=== PATIENT | male | born 1975 | race Caucasian/White ===

== ENCOUNTER 2018-11-17 06:06 | Emergency (ER) | payer BC, SELFPAY ==
[2018-11-17 06:07] VITALS: BP 154/101; PULSE 98; RESP 16; TEMP 36.4; O2SAT 99; BMI 55.2
--- NOTE | 2018-11-17 06:23 | ED.VISSUMM ---
- ER Visit Summary Date of Service: 11/17/18 Chief Complaint: Neck and back pain History of Present Illness: The patient is a 43 M who presents the emergency department with right-sided neck and back pain. Patient states that this prior Monday he had pain left side similar distribution of the trapezius but after a hot shower and some [id number]-[id number] treatment he felt better. He was fine all week until yesterday Monday, when he felt the same thing but on the right side. He tried the usual treatment that he worked earlier in the week and it did not help him. He states that he barely slept all night because of the pain. He notes pain with movement. He cannot find a comfortable position. What eventually brought him to the emergency department was that it hurt his back when he took a breath. PERC negative. Physical Examination: Afebrile vital signs are stable Gen: Well-nourished well-developed morbidly obese Head: Normocephalic atraumatic Eyes: Perrl EOMI ENT: TMs clear no rhinorrhea moist mucous membranes Neck: Supple no lymphadenopathy no JVD patient has exquisite tenderness in the trapezius muscle on the right. There are several palpable trigger points CVS: Regular rate rhythm no murmurs normal S1-S2 Respiratory: No distress clear to auscultation bilaterally chest nontender Abdomen: Soft nontender nondistended normal bowel sounds no masses Back: Nontender Extremity: Nontender no edema Skin: Normal color no rash Neuro: alert orientated ?3 CN II-XII intact normal strength sensation reflexes gait cerebellar Psych: Normal affect normal mood Emergency Department Course and Treatment: I believe this to be trapezius muscle spasm. He has palpable trigger points. I am going to write for Valium and a few [place]. Continued heat and stretching. Impression: 1. Right trapezius muscle spasm This note was generated with [employer] dictation software. It may contain incorrect words, spelling, and punctuation that were not noted in review of the chart prior to signing ED Disposition - Plan for ED Patient: Instructions: ED Spasm Muscle Prescriptions: Hydrocodone Bitart/Apap 5-325 [[place] 5MG-325MG] 1 tab PO Q6H PRN PRN 3 Days #10 tab PRN Reason: Pain Diazepam [Valium] 5 mg PO Q8 PRN #10 tab PRN Reason: Muscle Spasm Referrals: Brendon Stock DO [Primary Care Provider] - 3-5 Days if not improving
--- NOTE | 2018-11-17 06:26 | ED.DCSUM_ITS ---
- ER Visit Summary Date of Service: 11/17/18 Chief Complaint: Neck and back pain History of Present Illness: The patient is a 43 M who presents the emergency department with right-sided neck and back pain. Patient states that this prior Monday he had pain left side similar distribution of the trapezius but after a hot shower and some ubqi-qch-lafqsnm treatment he felt better. He was fine all week until yesterday Monday, when he felt the same thing but on the right side. He tried the usual treatment that he worked earlier in the week and it did not help him. He states that he barely slept all night because of the pain. He notes pain with movement. He cannot find a comfortable position. What ev entually brought him to the emergency department was that it hurt his back when he took a breath. PERC negative. Physical Examination: Afebrile vital signs are stable Gen: Well-nourished well-developed morbidly obese Head: Normocephalic atraumatic Eyes: Perrl EOMI ENT: TMs clear no rhinorrhea moist mucous membranes Neck: Supple no lymphadenopathy no JVD patient has exquisite tenderness in the trapezius muscle on the right. There are several palpable trigger points CVS: Regular rate rhythm no murmurs normal S1-S2 Respiratory: No distress clear to auscultation bilaterally chest nontender Abdomen: Soft nontender nondistended normal bowel sounds no masses Back: Nontender Extremity: Nontender no edema Skin: Normal color no rash Neuro: alert orientated ?3 CN II-XII intact normal strength sensation reflexes gait cerebellar Psych: Normal affect normal mood Emergency Department Course and Treatment: I believe this to be trapezius muscle spasm. He has palpable trigger points. I am going to write for Valium and a few [place]. Continued heat and stretching. Impression: 1. Right trapezius muscle spasm This note was generated with [employer] dictation software. It may contain incorrect words, spelling, and punctuation that were not noted in review of the chart prior to signing ED Disposition - Plan for ED Patient: Instructions: ED Spasm Muscle Prescriptions: Hydrocodone Bitart/Apap 5-325 [[place] 5MG-325MG] 1 tab PO Q6H PRN PRN 3 Days #10 tab PRN Reason: Pain Diazepam [Valium] 5 mg PO Q8 PRN #10 tab PRN Reason: Muscle Spasm Referrals: Brendon Stock DO [Primary Care Provider] - 3-5 Days if not improving
[2018-11-17] MEDS: diazePAM 5 MG Tablet PO (06:33)
[2018-11-17] MEDS: HYDROcodone Bitartrate/Apap 5/325 Tablet PO (06:33)
[2018-11-17 06:36] VITALS: BP 154/101; PULSE 98; RESP 16; O2SAT 98
== END 2018-11-17 06:37 | disposition home or self-care (01) ==
PROVIDERS: Emergency Provider Emergency Medicine; Family Provider Preventive Medicine Occupational Medicine; PCP Preventive Medicine Occupational Medicine
DX: M62.830 Muscle spasm of back (principal); E66.01 Morbid (severe) obesity due to excess calories; K21.9 Gastro-esophageal reflux disease without esophagitis
CPT/HCPCS: 99283

== ENCOUNTER 2019-11-05 04:43 | Inpatient (IN) | payer BC, SELFPAY ==
[2019-11-05] VITALS (23 sets, daily range): BP systolic 111–157; BP diastolic 69–122; PULSE 65–107; RESP 10–18; TEMP 36.3–37.2; O2SAT 96–100; BMI 56.4; BMI 56.0; BMI 56.1
--- NOTE | 2019-11-05 04:50 | ED.RN ---
CALLED FOR EKG PER RN REQUEST, PULLED OLD EKGS FOR
--- NOTE | 2019-11-05 04:55 | EKG12_ITS ---
Test Reason : CP Blood Pressure : / mmHG Vent. Rate : 099 BPM Atrial Rate : 099 BPM P-R Int : 164 ms QRS Dur : 100 ms QT Int : 374 ms P-R-T Axes : 067 002 026 degrees QTc Int : 479 ms Normal sinus rhythm Incomplete right bundle branch block ST & T wave abnormality, consider lateral ischemia Prolonged QT Abnormal ECG Confirmed by GERARD CARNEY, VANITA ([id number]), editor magazine AYALA MELARA ([id number]) on 11/12/2019 1:56:39 PM Referred By: GLORIA Confirmed By:BENJAMIN GEE MD
--- NOTE | 2019-11-05 04:55 | RAD_ITS ---
STUDY: X-RAY CHEST REASON FOR EXAM: Male, 44 years old. Sternal chest pain, shortness of breath and sweating for several days. TECHNIQUE: AP portable chest. COMPARISON: August 12, 2016. FINDINGS: The lungs are clear and expanded. There is no demonstrated pleural abnormality. Normal size heart. Normal mediastinum and rei. Normal visualized pulmonary arteries. Normal visualized aortic arch and descending thoracic aorta. Normal visualized thoracic spine. Normal visualized ribs, clavicles, and shoulders. There is no demonstrated abnormality of the visualized soft tissue structures of the upper abdomen. RAD/Chest 1 View (Portable) IMPRESSION: Normal x-ray examination of the chest. Electronically Signed: Elias Dougherty MD at 5:58 EDT , Service support ,
[2019-11-05 05:01] LABS: Absolute Lymphocyte Count 4.15 X10^3/uL (0.83-4.51); Absolute Neutrophil Count 8.4 X10^3/uL (2.0-7.7); Basophil# 0.05 X10^3/uL; Basophil% 0.3 % (0-1); Eosinophil# 0.68 X10^3/uL; Eosinophils% 4.7 % (0-5); Hematocrit 45.9 % (40-54); Hemoglobin 14.6 g/dL (13.0-16.5); Lymphocyte # 4.15 X10^3/ul (4.0); Mean Corp Hgb Conc 31.8 g/dL (32-36); Mean Corpuscular Hgb 28.7 pg (27.0-32.0); Mean Corpuscular Volume 90.4 fL (80-94); Mean Platelet Vol. 12.1 fl (6.2-12.0); Monocyte# 0.98 X10^3/uL; Monocyte% 6.8 % (0-10); NRBC Flagged by Analyzer 0 % (0-5); Neutrophil # 8.42 X10^3/uL (2.7-7.7); Neutrophil % 58.9 % (47-70); Platelet Count 206 K/mm3 (150-450); RBC Distribution Width CV 13.6 % (11.6-14.6); RBC Distribution Width SD 44.8 fl (35.1-43.9); Red Blood Count 5.08 M/mm3 (4.6-6.2); White Blood Count 14.3 K/mm3 (4.4-11.0)
[2019-11-05] MEDS: Aspirin 81 MG TAB.CHEW 324 MG PO (05:09)
[2019-11-05] MEDS: Mag Hydrox/Al Hydrox/Simeth 30 ML UDC PO (05:09)
[2019-11-05] MEDS: 0.9% Normal Saline 1,000 ML 150 ML IV (05:13)
[2019-11-05 05:19] LABS: Anion Gap 7 (5-15); BUN 13 mg/dL (7-18); BUN/Creat Ratio 14.1 RATIO (10-20); Calcium,Total 8.4 mg/dL (8.5-10.1); Chloride 105 mmol/L (98-107); Creatinine, Serum 0.92 mg/dL (0.70-1.30); EST Glomerular Filtration Rate 95 mL/min (>60); Est Glom Filt Rate - Afr Amer 115 mL/min (>60); Glucose 179 mg/dL (74-106); Potassium 3.7 mmol/L (3.5-5.1); Sodium Level 138 mmol/L (136-145)
--- NOTE | 2019-11-05 06:11 | ED.DCSUM_ITS ---
- ER Visit Summary Date of Service: 11/05/19 Chief Complaint: Chest pain History of Present Illness: The patient is a [address] Foote. He reports approximately an hour ago he was awakened from sleep by burning substernal chest pain. It was 8 or 10 worsening to a 10 currently. It was worsened by nothing. He states he does take omeprazole without relief. He reports pain is made him short of breath and diaphoretic. He denies any nausea or vomiting. Patient had an episode 5 days ago the last approximately 30 minutes and woke him from sleep as well. Patient denies any chest pain or change in dyspnea exertion in the past month. He reports he has been on omeprazole for years. He has been taking that inconsistently over the past year. However, he is taking it daily for the past 5 days. Patient has obesity, tobacco use, and family history as risk factors for coronary artery disease. He denies high blood pressure, diabetes, or high cholesterol. Physical Examination: Vitals: Stable. Afebrile. General: Well-nourished and well-developed. Head: Normocephalic atraumatic. Neck: Supple, no lymphadenopathy. No JVD. Nontender. Cardiovascular: Regular rate and rhythm. No murmurs. Respiratory: No respiratory distress. Clear to auscultation bilaterally. Abdominal: Soft, nontender, nondistended, normal bowel sounds. No guarding, rebound, or peritoneal signs. Back: Nontender. Extremities: Nontender, no edema. Skin: Normal color, no rash. Neurologic: Alert and oriented ?3. Cranial nerves II through XII are intact. Normal strength and sensation. Psych: Normal affect. Test Results: EKG is sinus at 99 with an incomplete right bundle branch block and inferolateral ST depression. QTC is 479. This is a change from August 2016. Troponin is negative. Chem-7 shows a glucose of 179 and calcium of 8.4. CBC shows a white count of 14.3. Clinical Impression(s) from Imaging Studies Chest X-Ray 11/05/19 04:55 IMPRESSION: Normal x-ray examination of the chest. Electronically Signed: Elias Dougherty MD at 5:58 EDT , Service support , Emergency Department Course and Treatment: Patient was treated with aspirin. He was also given a GI cocktail. Treatment Plan: While the patient's pain is very atypical and he improved with a GI cocktail. This does not explain his EKG changes. His heart score is 4. He was discussed with Dr. Hudson and will be admitted for further evaluation and treatment. Disposition: Admitted in improved condition. Impression: 1. Atypical chest pain. 2. Inferolateral ST depression. 3. Heart score 4. This note was generated with [employer] dictation software. It may contain incorrect words, spelling, and punctuation that were not noted in review of the chart prior to signing ED Disposition - Plan for ED Patient: Referrals: Brendon Stock DO [Primary Care Provider] -
--- NOTE | 2019-11-05 06:27 | HP.PCM_ITS ---
Problem List (1) Chest pain Status: Acute (2) Obesity Status: Chronic (3) Smoking Status: Chronic History of Present Illness Date of Admission: 11/05/19 Chief Complaint: CHEST PAIN The patient is a 44 year old patient with a significant past medical history of smoking 1-1/2 packs/day, morbid obesity presents the emergency room today with chest pain. Onset of this chest pain began about 3:00 this morning when the patient awoke and he described it as substernal in nature nonradiating that was 8/10 in strength. He had a similar episode of this kind of pain last also again awakening with it that self resolved. After initial treatment the emergency room the pain is now 0/[address] depressions and inverted T waves on anterior leads V1 that were not present on a previous EKG. Initial troponin is negative and patient will be admitted to progressive care unit for observation and rule out of her [place] artery disease. Since the patient had this chest pain upon awakening both times in the middle of the night and IS obese, there is also concern for sleep apnea. Past Medical History Past Medical History (Chronic Problems): Chronic Problems Obesity (Chronic) Smoking (Chronic) Allergies No Known Allergies Allergy (Verified 11/05/19 04:55) Home Medications: Ambulatory Orders Medication Instructions Recorded Omeprazole 40 mg PO DAILY 08/12/16 Diazepam [Valium] 5 mg PO Q8 PRN #10 tab 11/17/18 Smoking Status: Current every day smoker - *Family History Maternal History Items: No pertinent history Review of Systems Constitutional: Denies: Chills, Fever, Weight Change HEENT: Denies: Head Aches, Sinus Congestion, Sinus Drainage Cardiovascular: Reports: Chest Pain. Denies: Palpitations Respiratory: Denies: Cough, Shortness of breath at rest, Sputum production Gastrointestinal: Denies: Abdominal Pain, Nausea, Vomiting Genitourinary: Denies: Dysuria Musculoskeletal: Denies: Joint Pain, Joint Tenderness Skin: Denies: Rash, Wounds Neurological: Denies: Numbness, Tingling, Focal weakness Psychiatric: Denies: Anxiety, Depression, Homicidal Ideations, Suicidal Ideations Hematologic/ Lymphatic: Denies: Easy Bruising, Easy Bleeding VTE Information - Inpt Only VTE Present on Admission: No VTE Mechan Device Prophylaxis: None VTE Pharm Prophylaxis ordered?: No Patient Problems: Active and Suspected Problems Chest pain (Acute) - Physical Exam Vitals/I&O's: Vital Signs Temp Pulse Resp BP Pulse Ox 98.0 F 94 12 157/96 H 98 11/05/19 06:18 11/05/19 06:18 11/05/19 06:18 11/05/19 06:18 11/05/19 06:18 Oxygen Delivery Method Room Air Weight: 382 lb 4.505 oz Body Mass Index (BMI) 56.4 General: Alert, Oriented x3, Cooperative HEENT: Atraumatic, Normocephalic Neck: Supple Lungs: Clear to auscultation, Normal air movement Cardiovascular: Regular rate, Normal S1, Normal S2, No murmurs Abdomen: Bowel Sounds Present, Soft, Non Tender, Obese Extremities: No edema Skin: No rashes Musculoskeletal: No Tenderness to Palpation of Joints or Extremities Neurological: Neuro grossly intact Psych/Mental Status: Normal Affect, Appropriate Laboratory Results 11/05/19 04:55: WBC 14.3 H, RBC 5.08, Hgb 14.6, Hct 45.9, MCV 90.4, MCH 28.7, MCHC 31.8 L, RDW Std Deviation 44.8 H, RDW Coeff of Rey 13.6, Plt Count 206, MPV 12.1 H, Immature Gran % (Auto) 0.300, Neut % (Auto) 58.9, Lymph % (Auto) 29.0, [place] % (Auto) 6.8, Eos % (Auto) 4.7, Baso % (Auto) 0.3, Absolute Neuts (auto) 8.4 H, Absolute Lymphs (auto) 4.15, Nucleated RBC % 0 11/05/19 04:55: Sodium 138, Potassium 3.7, Chloride 105, Carbon Dioxide 26.0, Anion Gap 7, BUN 13, Creatinine 0.92, Estim Creat Clear Calc 101.40, Est GFR (MDRD) Af Amer 115, Est GFR (MDRD) Non-Af 95, BUN/Creatinine Ratio 14.1, Glucose 179 H, Calcium 8.4 L, Troponin I < 0.015 Current Medications Sodium Chloride () 1,000 mls @ 150 mls/hr IV .Q6H40M [facility] Last Admin: 11/05/19 05:13 Dose: 150 mls/hr Documented by: Assessment/Plan All Active Problems Chest pain (Acute) Chronic Problems Obesity (Chronic) Smoking (Chronic) Plan 1. Chest pain rule out myocardial infarction?admit to progressive care unit for observation, echo cardiac enzymes set up nuclear stress test. Nitroglycerin as needed for chest pain, oxygen as needed and add a baby aspirin daily. 2. Tobacco abuse?cessation strongly encouraged 3. Obesity?encourage weight loss plan 4. DVT prophylaxis?due to age and length of stay will forego any low molecular weight heparin at this point. Strong suspicion for obstructive sleep apnea and would encourage this to be pursued as an outpatient OBSV E&M: [id number] Initial observation care L2
--- NOTE | 2019-11-05 07:40 | EKG12_ITS ---
Test Reason : Blood Pressure : / mmHG Vent. Rate : 086 BPM Atrial Rate : 086 BPM P-R Int : 150 ms QRS Dur : 106 ms QT Int : 382 ms P-R-T Axes : 060 009 025 degrees QTc Int : 457 ms Normal sinus rhythm Normal ECG When compared with ECG of 05-NOV-2019 04:48, MANUAL COMPARISON REQUIRED, DATA IS UNCONFIRMED Confirmed by GERARD CARNEY, VANITA ([id number]), market editor AYALA MELARA ([id number]) on 11/12/2019 2:27:34 PM Referred By: LIZZY Confirmed By:BENJAMIN GEE MD
[2019-11-05 08:05] LABS: Bedside Glucose 112 mg/dL (70-110)
--- NOTE | 2019-11-05 09:58 | CASEMGMT ---
According to the [facility] website, the following are in-network tertiary facilities: [facility] and . [facility]
--- NOTE | 2019-11-05 10:06 | CON.PCM_ITS ---
Problem List (1) NSTEMI (non-ST elevated myocardial infarction) Status: Acute (2) Smoking Status: Chronic (3) Obesity Status: Chronic Reason for Consult Date of Consultation: 11/05/19 History of Present Illness: The patient is a 44 year old white male with a past medical history of tobacco abuse who presents for evaluation of nocturnal chest discomfort/burning sensati on, bilateral upper extremity paresthesias, and then sensation of dyspnea for further evaluation with subsequent findings of an abnormal troponin I level and ECG changes compatible with a non-ST segment elevation MN. The patient states the best of his knowledge she has no cardiovascular history. He does not recall ever undergoing any cardiovascular testing. He notes that he has had 2 episodes recently that subsequently brought him to the hospital of nocturnal centralized chest burning sensation with bilateral upper extremity paresthesias and the sensation of dyspnea. He has had no nausea, emesis, or diaphoresis. There has been no near syncope or syncope. He attributed his symptoms to acid buildup. However he presented to the hospital for evaluation. His initial troponin I level was negative. His initial ECG demonstrated sinus rhythm with an incomplete right bundle branch block with subtle ST segment changes in the lateral distribution potentially compatible with myocardial ischemia. His repeat troponin I level was positive and his repeat ECG demonstrated what appeared to be resolution of the aforementioned ST segment changes. He was subsequently referred for further evaluation with vascular consultation and consideration for diagnostic cardiac catheterization. He has denied any symptoms of orthopnea, PND, or peripheral pitting edema. He admits to his previous history of tobacco use. He also notes a family history in his mother of cardiovascular disease thought to be CAD/MN in her 60s. [] Past Medical History Allergies/Adverse Reactions: Allergies No Known Allergies Allergy (Verified 11/05/19 04:55) Home Medications: Ambulatory Orders Medication Instructions Recorded Omeprazole 40 mg PO DAILY 08/12/16 Diazepam [Valium] 5 mg PO Q8 PRN #10 tab 11/17/18 Past Medical History (Chronic Problems): Chronic Problems Obesity (Chronic) Smoking (Chronic) - *Family History Maternal History Items: No pertinent history Lives: Spouse/ Significant Other Smoking Status: Current every day smoker Tobacco Use: Cigarettes Drugs: None Review of Systems - Review of Systems General: Denies: Fever, Night Sweats, Fatigue Cardiovascular: Reports: Chest Discomfort, Chest Discomfort at Rest, Shortness of Breath, Shortness of Breath at Rest. Denies: Orthopnea, PND, Peripheral Edema, Palpitations, Lightheadedness, Dizziness, Near Syncope, Syncope Respiratory: Denies: Cough, Sputum Production, Hemoptysis Gastrointestinal: Denies: Hematemesis, Hematochezia, Melena Genitourinary: Denies: Dysuria, Hematuria Skin: Denies: Rash Subjectve: This is a 44-year-old obese white male who appears to be resting comfortably at the moment in no acute distress. Objective: Vital Signs Temp Pulse Resp BP Pulse Ox 98.8 F 94 16 147/85 H 98 11/05/19 10:03 11/05/19 10:03 11/05/19 10:03 11/05/19 10:03 11/05/19 10:03 Oxygen Delivery Method Room Air Weight: 379 lb 10.176 oz Body Mass Index (BMI) 56.0 General: Awake, Alert, Oriented x 3, Cooperative, No Acute Distress, Obese HEENT: Atraumatic, Normocephalic, PERRL, EOMI, Sclera Non Icteric Oral: Moist Mucosa Neck: Supple, Good ROM, No JVD Lungs: Clear to auscultation Cardiovascular: Regular Rhythm, Normal S1, Normal S2 Vascular: No Carotid Bruits Abdomen: Bowel Sounds Present, Soft, Non Tender Extremities: No Cyanosis, No Clubbing, No edema Neurological: No Focal Motor or Sensory Deficit Psych/Mental Status: Appropriate 11/05/19 04:55: WBC 14.3 H, RBC 5.08, Hgb 14.6, Hct 45.9, MCV 90.4, MCH 28.7, MCHC 31.8 L, Plt Count 206, MPV 12.1 H, Immature Gran % (Auto) 0.300, Neut % (Auto) 58.9, Lymph % (Auto) 29.0, [place] % (Auto) 6.8, Eos % (Auto) 4.7, Baso % (Auto) 0.3, Absolute Neuts (auto) 8.4 H, Nucleated RBC % 0 11/05/19 04:55: Sodium 138, Potassium 3.7, Chloride 105, Carbon Dioxide 26.0, Anion Gap 7, BUN 13, Creatinine 0.92, Est GFR (MDRD) Af Amer 115, Est GFR (MDRD) Non-Af 95, BUN/Creatinine Ratio 14.1, Glucose 179 H, Calcium 8.4 L, Troponin I < 0.015 11/05/19 08:13: Troponin I 0.895 H* Rhythm: Sinus rhythm EKG: ECG as noted above CXR: Preliminary evaluation: No acute cardiopulmonary disease process. Assessment/Plan 1. Non-ST segment elevation MN At the present time this is a 44-year-old obese tobacco user with no past cardiovascular history who presents for nocturnal symptoms concerning for unstable angina pectoris and subsequent objective findings compatible with a non-ST segment elevation MN. Thus far there is been no other explanation for his symptoms, troponin I changes, or his ECG changes. Thus the concern is related to his underlying cardiovascular disease status and concerns for underlying CAD that requires only medical therapy but possibly revascularization therapy. At the present time he will continue to be observed. He will continue medical management. This will include medication such as aspirin, antiplatelets, nitrates as needed, beta-blockers, possible MICK inhibitor's, lipid-lowering agents, etc. all as deemed appropriate. He has been asked to have further evaluation with a transthoracic echocardiogram to evaluate his left ventricular wall motion systolic function. However he is also been asked to consider further evaluation with diagnostic cardiac catheterization to evaluate his coronary anatomy, etc. The cardiac catheterization procedure and risks were discussed with him. He was agreeable to this approach. 2. Tobacco abuse He has been counseled on the need to discontinue tobacco use. 3. Obesity He has been counseled on the need to adjust diet and exercise as deemed appropriate to hopefully bring his weight under better control to assist with his cardiovascular risk factors. Comment: The patient's case was discussed and reviewed with Dr. Richards. This note was generated using a voice recognition system and there may be incorrect words, spelling or punctuation that were not noted when reviewing the office note prior to saving. Essential Procedure Criteria Procedure Essential: Yes Criteria Note: NSTEMI Risk to Patient if Procedure Delayed: Threat of permanent dysfunction of an extremity or organ system - NSTEMI
[2019-11-05] MEDS: Metoprolol Tartrate 25 MG Tablet PO ×2 (10:25→21:31)
[2019-11-05] MEDS: TICAGRELOR 90 MG TABLET 180 MG PO (10:25)
[2019-11-05] MEDS: 0.9% Normal Saline 1,000 ML 15 ML IV (10:25)
--- NOTE | 2019-11-05 10:30 | NURSING ---
Report called to clinical lab clerk.
[2019-11-05 11:00] LABS: AST(SGOT) 17 U/L (15-37); Alanine Aminotransfer ALT/SGPT 26 U/L (16-61); Albumin, Serum 3.3 g/dL (3.2-5.0); Alkaline Phosphatase 81 U/L (45-117); Cholesterol 125 mg/dL (200); Globulin 4.7 g/dL (2.2-4.2); High Density Lipoprotein 29 mg/dL; Triglycerides 98 mg/dL; Very Low Density Lipoprotein 20 mg/dL (5-40)
[2019-11-05] MEDS: 0.9% Normal Saline 1,000 ML 75 ML IV (12:20)
[2019-11-05 12:26] LABS: D-Dimer Quantitative (DVT/PE) 0.44 FEU/ug/m (0.27-0.49)
--- NOTE | 2019-11-05 12:40 | CL.D_ITS ---
Patient Name: JASON CALDERON Study Date: 11/05/2019 Performing: Gabe Sepulveda MD Ht: 69 inches 175 cm : 1975 Wt: 379.7 lbs 172 kg Age: 44 Gender: male BSA: 2.71 PROCEDURE(S) PERFORMED PG93-PFG/COR/LV CLINICAL PROFILE AND INDICATIONS Indications: ACS <= 24 hrs, New Onset Angina <= 2 months, Suspected CAD Heart Failure: None Stress/Imaging Stress/Image Study Performed: No Angina Classification Anginal Classification w/in 2 Weeks: CCS IV (nocturnal) CAD Presentations: Non-STEMI. CONCLUSIONS Elevated Left Ventricular End Diastolic Pressure Normal LV size, wall motion,and systolic function LVEF: by LV gram 60 % RECOMMENDATIONS Risk factor modification Medical therapy DESCRIPTION OF PROCEDURE The patient arrived to the procedure lab. The risks and benefits of the procedure as well as a full d escription of our services here and current unavailability of surgical backup were fully explained to the patient and/or their significant other prior to the catheterization. The Timeout was completed, verifying the correct patient and procedure. The patient's procedural site was prepped and draped in the usual fashion. Local anesthetic was given subcutaneously to right radial region with Lidocaine 2% . Using a modified Seldinger technique, arterial access was obtained via the right radial artery, a 6 Fr sheath was inserted. Right Coronary Artery selective angiography was then performed in multiple v iews using a 5 Fr. 4.0 [place] catheter. Left Coronary Artery selective angiography was performed in mu ltiple views using a 5 Fr. 4.0 [place] catheter. Left Ventriculography was performed in GORE projection using a 5 Fr. [place] catheter. LV to AO pullback pressures were then recorded.The arterial sheath was pulled and a TR Band was applied for hemostasis CORONARY ANGIOGRAPHY DOMINANCE: Right Dominant LEFT HEART ASSESSMENT Left Ventricular Ejection Fraction: by LV Gram 60 % Normal LV wall motion Elevated Left Ventricular End Diastolic Pressure LVEDP: 23 mmHg LEFT MAIN: Angiographically normal LEFT ANTERIOR DESCENDING ARTERY: Angiographically normal CIRCUMFLEX ARTERY: MID CIRC: Mild luminal irregularities RIGHT CORONARY ARTERY: MID RCA: Mild luminal irregularities AORTIC ROOT: Angiographically normal COMPLICATIONS No Complications PROCEDURE MEDICATIONS Versed 1 mg IV Fentanyl 50 mcg IV Oxygen: 2 L/min via nasal cannula Heparin given IA 11/05/2019 11:14:04 Verapamil 2.5mg, Ntg 100mcgs, 2000 units of Heparin given IA 11/05/2019 11:14:04 SUMMARY OF HEMODYNAMIC DATA Time AIR REST ECG 10:54:52 AO 125/98 (112) SA 11:15:32 LV 153/-4, 28 11:24:55 LV 156/-5, 23 11:25:02 LV 157/2, 35 11:25:49 LV 156/1, 34 11:25:56 LVp 156/0, 29 11:26:06 AOp 139/93 (114) 11:26:11 Signed By Gabe Sepulveda MD On 11/05/2019 12:40:14 Gabe Sepulveda MD
[2019-11-05] MEDS: Lisinopril 10 MG Tablet PO ×2 (13:35→21:31)
--- NOTE | 2019-11-05 14:02 | ECHOD_ITS ---
Reason For Study: S/P [place] Procedure This was a 2D Doppler, Color Flow transthoracic echocardiogram. The study was technically difficult. Exam performed portable in patient room. Left Ventricle Left ventricular systolic function is normal. The estimated ejection fraction is 65 %. No evidence for diastolic dysfunction. No regional wall motion abnormalities noted. Right Ventricle Normal RV size. Normal systolic function. Atria Normal left atrium. Normal right atrium. No doppler evidence for ASD. Mitral Valve There is no mitral annular calcification. Normal mitral valve. Trivial mitral valve insufficiency. Tricuspid Valve Normal tricuspid valve. Trivial tricuspid valve insufficiency. Unable to estimate RV systolic pressure/pulmonary artery pressure due to technically difficult study. Aortic Valve Trisinus/trileaflet aortic valve. Normal aortic valve. Pulmonic Valve The pulmonic valve is not well visualized. Great Vessels Normal sized aortic root. Pericardium/Pleural No pericardial effusion. MMode/2D Measurements & Calculations LVIDd: 5.7 cm IVSd: 1.2 cm Ao root diam: 3.3 cm LVIDs: 3.9 cm LVPWd: 1.2 cm RVDd: 3.4 cm FS: 32.3 % LAV(MOD-bp): 54.7 ml LA A4 area: 18.9 cm2 LA dimension(2D): 3.2 cm LAV(MOD-bp) Indexed: 20.2 ml/m2 LAV(MOD-sp2): 55.5 ml LAV(MOD-sp4): 55.1 ml RA A4 area: 12.9 cm2 Time Measurements MV dec time: 0.21 sec Doppler Measurements & Calculations MV E max lambert: 88.6 cm/sec Lat Peak E' Lambert: 10.0 cm/sec Med Peak E' Lambert: 7.0 cm/sec MV A max lambert: 81.2 cm/sec E/E' lat: 8.9 E/E' med: 12.6 MV E/A: 1.1 Ao V2 max: 142.2 cm/sec LV V1 max: 114.9 cm/sec PA V2 max: 97.4 cm/sec Ao max P.1 mmHg LV V1 max P.3 mmHg Ao V2 mean: 104.8 cm/sec LV V1 mean P.4 mmHg Ao mean P.8 mmHg LV V1 mean: 88.9 cm/sec Ao V2 VTI: 24.9 cm LV V1 VTI: 23.4 cm Interpretation Summary The study was technically difficult. Left ventricular systolic function is normal. The estimated ejection fraction is 65 %. Trivial mitral valve insufficiency. Trivial tricuspid valve insufficiency. Unable to estimate RV systolic pressure/pulmonary artery pressure due to technically difficult study. No evidence for diastolic dysfunction. Ordering Physician: Gabe Sepulveda Referring Physician: Brendon Stock Performed By: Yolanda Rosales RDCS, RVT
--- NOTE | 2019-11-05 16:45 | CCHN_ITS ---
Hospitalist Note Patient was seen and examined briefly today, his cardiac enzymes elevated today and he was seen by cardiology in consultation, cardiac catheterization was performed today which showed no evidence of obstructive coronary disease, there was mild diffuse coronary artery disease noted however. Patient's medications were adjusted by cardiology. Patient also had a CTA of his chest performed today which did not show evidence of a PE. Patient remained stable at this time, he will be reevaluated tomorrow by cardiology for possible discharge to [place].
[2019-11-05] MEDS: Atorvastatin Calcium 20 MG Tablet PO (21:31)
[2019-11-06] MEDS: 0.9% Normal Saline 1,000 ML 75 ML IV (00:50)
[2019-11-06 02:59] VITALS: PULSE 62
[2019-11-06 03:20] VITALS: BP 125/82; PULSE 76; RESP 18; TEMP 36.6; O2SAT 97
[2019-11-06 06:00] LABS: Hematocrit 43.8 % (40-54); Hemoglobin 14.2 g/dL (13.0-16.5); Mean Corp Hgb Conc 32.4 g/dL (32-36); Mean Corpuscular Hgb 28.9 pg (27.0-32.0); Mean Platelet Vol. 12.1 fl (6.2-12.0); Platelet Count 204 K/mm3 (150-450); RBC Distribution Width CV 13.8 % (11.6-14.6); RBC Distribution Width SD 44.7 fl (35.1-43.9); Red Blood Count 4.92 M/mm3 (4.6-6.2); White Blood Count 12.7 K/mm3 (4.4-11.0)
[2019-11-06 06:38] LABS: ALB/GLOB Ratio 0.7 RATIO (0.9-2.4); AST(SGOT) 19 U/L (15-37); Alanine Aminotransfer ALT/SGPT 25 U/L (16-61); Albumin, Serum 3.1 g/dL (3.2-5.0); Alkaline Phosphatase 75 U/L (45-117); Anion Gap 6 (5-15); BUN 11 mg/dL (7-18); Calcium,Total 8.5 mg/dL (8.5-10.1); Chloride 108 mmol/L (98-107); Creatinine, Serum 0.78 mg/dL (0.70-1.30); EST Glomerular Filtration Rate 114 mL/min (>60); Est Glom Filt Rate - Afr Amer 138 mL/min (>60); Globulin 4.3 g/dL (2.2-4.2); Glucose 136 mg/dL (74-106); Protein, Total 7.4 g/dL (6.4-8.2); Sodium Level 139 mmol/L (136-145)
[2019-11-06 07:00] VITALS: PULSE 66
[2019-11-06 07:30] VITALS: O2SAT 92
[2019-11-06 09:20] VITALS: BP 150/73; PULSE 73; RESP 16; TEMP 36.4; O2SAT 100
[2019-11-06] MEDS: Pantoprazole Sodium 40 MG Tablet PO (09:20)
[2019-11-06] MEDS: Lisinopril 10 MG Tablet PO (09:20)
[2019-11-06] MEDS: Aspirin 81 MG TAB.CHEW PO (09:20)
[2019-11-06] MEDS: Metoprolol Tartrate 25 MG Tablet PO (09:20)
[2019-11-06] MEDS: Clopidogrel Bisulfate 75 MG Tablet PO (09:20)
--- NOTE | 2019-11-06 10:10 | CASEMGMT ---
RN LACI Face to Face with patient for initial transition planning/care coordination assessment. RN CM introduced self and role at [facility]. Patient sitting in chair, alert and oriented. Patient willing to participate in assessment and is able to answer all questions appropriately. Care providers, pharmacy, and demographics verified. Patient wishes to discharge home, denies need for home health at this time. Patient states he has no further needs or concerns at this time. CM to follow for discharge planning needs that may arise. PCP: Brendon Stock Specialists: None Preferred Pharmacy: [facility] Insurance: [employer] Prescription Benefit: yes Living Will/HPOA: none LNOK: Living Arrangements: Patient lives with in mobile home with 6-7 steps to enter the home. Patient states he is independent at home and able to ambulate stairs. Patient states he smoke 3/4 pack of cigarettes per day since age 15yo. Has occasional alcohol. Transportation: self or DME/HHC: Patient denies any DME or previous HHC. Disposition Plan: Patient to discharge home with family support and follow-up plans in place. Silvia CAMEJO, RN, CM
--- NOTE | 2019-11-06 10:12 | DCINST_ITS ---
- Discharge Diagnoses Current Active Problems: Current Active and Chronic Problems Chest pain (Acute) Obesity (Chronic) Smoking (Chronic) NSTEMI (non-ST elevated myocardial infarction) (Acute) You will use the following diet at home:: Calorie/Carbohydrate Controlled (specify 1200, 1400, etc), Cardiac Discharge Activity: Return to Normal Activity Call your doctor if you observe: Shortness of breath, Dizziness, Fainting spells, Chest pain Allergies/Adverse Reactions: Allergies No Known Allergies Allergy (Verified 11/05/19 04:55) Medications to take at Discharge Omeprazole 40 mg PO DAILY 08/12/16 Diazepam [Valium] 5 mg PO Q8 PRN #10 tab 11/17/18 Aspirin [Aspirin, Baby] 81 mg PO DAILY@0800 #30 tab.chew 11/06/19 Atorvastatin Calcium [Lipitor] 20 mg PO QHS #30 tab 11/06/19 Clopidogrel Bisulfate [Plavix] 75 mg PO DAILY #30 tab 11/06/19 Lisinopril [Zestril] 10 mg PO BID #60 tab 11/06/19 Metoprolol Tartrate [Lopressor (beta jayson)] 25 mg PO BID #60 tab 11/06/19 The following prescriptions were given: Aspirin [Aspirin, Baby] 81 mg PO DAILY@0800 #30 tab.chew Transmission Status: [facility] to [id number] Atorvastatin Calcium [Lipitor] 20 mg PO QHS #30 tab Transmission Status: [facility]ending [id number] Metoprolol Tartrate [Lopressor (beta jayson)] 25 mg PO BID #60 tab Transmission Status: [facility]ending to [id number] Clopidogrel Bisulfate [Plavix] 75 mg PO DAILY #30 tab Transmission Status: [id number] Lisinopril [Zestril] 10 mg PO BID #60 tab Transmission Status: [id number] Primary Care Physician: Brendon Stock DO [Primary Care Provider] - Please follow up with your Primary Care Physician in: 1 Week Test Results: Test results from this visit will be discussed in further detail at your follow- up appointment, if applicable. Please Follow Up With: Gabe Sepulveda MD When: 2 Weeks, may see [employer]IP[employer]EARCH ENGINEER/PA Proposed Discharge Date: 11/06/19
--- NOTE | 2019-11-06 10:14 | DS.PCM_ITS ---
<Mago Burnett - Last Filed: 11/06/19 10:22> Discharge Date and Diagnosis Date of Admission: 11/05/19 Date of Discharge: 11/06/19 - Primary Discharge Diagnosis Active and Suspected Problems 1. NSTEMI 2. Hypertension 3. Tobacco dependence 4. Morbid obesity 5. GERD - Secondary Discharge Diagnosis Chronic Problems Obesity (Chronic) Smoking (Chronic) Hospital Course and Treatment Imaging Results: Diagnostic Data Chest X-Ray 11/05/19 04:55 IMPRESSION: Normal x-ray examination of the chest. Electronically Signed: Elias Dougherty MD at 5:58 EDT , Service support , Dr. Sepulveda- Cardiology Operations: None Procedures: 2-D Echocardiogram, Cardiac catheterization Summary of Care Provided: The patient is a 44 year old M admitted 11/05/2019 due to chest pain. 1. NSTEMI-cardiology consulted. Echocardiogram demonstrated an EF of 65%. Cardiac catheterization demonstrated nonobstructive coronary arteries, mild luminal irregularities mid RCA and mid circumflex. Plan for medical management. Continue aspirin, statin, Plavix, lisinopril, metoprolol at discharge. Follow- up with cardiology in 2 weeks. Follow-up with primary care physician in 1 week. 2. Hypertension-stable, continue metoprolol and lisinopril regimen as noted above. 3. Tobacco dependence- encouraged cessation. 4. Morbid obesity- encouraged diet and lifestyle modifications. 5. GERD- continue PPI. Patient seen and examined prior to discharge. Physical assessment as noted below. Patient is stable for discharge with follow up recommendations as noted above. This patient was seen by CHESTER Hopson under the supervision of Dr. Maldonado. - Physical Exam Vitals/I&O's: Vital Signs Temp Pulse Resp BP Pulse Ox 97.6 F L 73 16 150/73 H 100 11/06/19 09:20 11/06/19 09:20 11/06/19 09:20 11/06/19 09:20 11/06/19 09:20 Oxygen Delivery Method Room Air Weight: 379 lb 10.176 oz Body Mass Index (BMI) 56.0 Intake and Output for Last 24 Hours 11/04/19 11/05/19 11/06/19 23:59 23:59 23:59 Intake Total 1787.5 / 1787.5 1177.5 / 1177.5 Balance 1787.5 / 1787.5 1177.5 / 1177.5 General: Alert, Oriented x3, Cooperative HEENT: Atraumatic, PERRLA, EOMI, Normocephalic Neck: Supple, No JVD, Negative Carotid Bruits Lungs: Clear to auscultation, Normal air movement Cardiovascular: Regular rate, Regular Rhythm, Normal S1, Normal S2, No murmurs Abdomen: Bowel Sounds Present, Soft, Non Tender, Non-Distended, Obese Extremities: No clubbing, No cyanosis, No edema, Capillary Refill Less than 3 Seconds Skin: No rashes, No breakdown Musculoskeletal: No Tenderness to Palpation of Joints or Extremities Neurological: Cranial nerves II-XII grossly intact, Neuro grossly intact Psych/Mental Status: Normal Affect, Appropriate Laboratory Results 11/05/19 10:20: Total Bilirubin 0.20, Direct Bilirubin 0.10, AST 17, ALT 26, Alkaline Phosphatase 81, Troponin I 1.290 H*, Total Protein 8.0, Albumin 3.3, Globulin 4.7 H, Triglycerides 98, Cholesterol 125, LDL Cholesterol 76, VLDL Cholesterol 20, HDL Cholesterol 29 L 11/05/19 10:20: D-Dimer Quant (PE/DVT) 0.44 11/05/19 14:05: Troponin I 1.530 H* 11/06/19 05:49: WBC 12.7 H, RBC 4.92, Hgb 14.2, Hct 43.8, MCV 89.0, MCH 28.9, MCHC 32.4, RDW Std Deviation 44.7 H, RDW Coeff of Rey 13.8, Plt Count 204, MPV 12.1 H 11/06/19 05:49: Sodium 139, Potassium 4.0, Chloride 108 H, Carbon Dioxide 25.0, Anion Gap 6, BUN 11, Creatinine 0.78, Estim Creat Clear Calc 119.60, Est GFR (MDRD) Af Amer 138, Est GFR (MDRD) Non-Af 114, BUN/Creatinine Ratio 14.0, Glucose 136 H, Calcium 8.5, Total Bilirubin 0.30, AST 19, ALT 25, Alkaline Phosphatase 75, Troponin I 0.802 H*, Total Protein 7.4, Albumin 3.1 L, Globulin 4.3 H, Albumin/Globulin Ratio 0.7 L Current Medications Aspirin (Aspirin, Baby) 81 mg PO DAILY@0800 [facility] Last Admin: 11/06/19 09:20 Dose: 81 mg Documented by: Atorvastatin Calcium (Lipitor) 20 mg PO QHS [facility] Last Admin: 11/05/19 21:31 Dose: 20 mg Documented by: Clopidogrel Bisulfate (Plavix) 75 mg PO DAILY [facility] Last Admin: 11/06/19 09:20 Dose: 75 mg Documented by: Dextrose (D50w Syringe) 0 gm IV X1 PRN; Protocol PRN Reason: Hypoglycemia Glucagon () 1 mg IM .X1 PRN PRN Reason: Hypoglycemia Sodium Chloride () 1,000 mls @ 15 mls/hr IV .Q48H [facility] Last Infusion: 11/05/19 11:55 Dose: Infused Documented by: Sodium Chloride () 1,000 mls @ 75 mls/hr IV .[id number] [facility] Last Admin: 11/06/19 00:50 Dose: 75 mls/hr Documented by: Lisinopril (Zestril) 10 mg PO BID [facility] Last Admin: 11/06/19 09:20 Dose: 10 mg Documented by: Metoprolol Tartrate (Lopressor (Beta Annette)) 25 mg PO BID [facility] Last Admin: 11/06/19 09:20 Dose: 25 mg Documented by: Nitroglycerin (Nitrostat) 0.4 mg SUBLINGUAL Q5M PRN PRN Reason: CARDIAC/CHEST PAIN Pantoprazole Sodium (Protonix) 40 mg PO DAILY [facility] Last Admin: 11/06/19 09:20 Dose: 40 mg Documented by: Sodium Chloride () 10 - 40 ml IV UD PRN PRN Reason: SALINE FLUSH Discharge Diet: Low fat/ Low Cholesterol, 1800 Calorie Control Diet, Carb Control Diet Discharge Activity: Return to Normal Activity Call your doctor if you observe: Shortness of breath, Dizziness, Fainting spells, Chest pain Home Medications: Medications to take at Discharge Omeprazole 40 mg PO DAILY 08/12/16 Diazepam [Valium] 5 mg PO Q8 PRN #10 tab 11/17/18 Aspirin [Aspirin, Baby] 81 mg PO DAILY@0800 #30 tab.chew 11/06/19 Atorvastatin Calcium [Lipitor] 20 mg PO QHS #30 tab 11/06/19 Clopidogrel Bisulfate [Plavix] 75 mg PO DAILY #30 tab 11/06/19 Lisinopril [Zestril] 10 mg PO BID #60 tab 11/06/19 Metoprolol Tartrate [Lopressor (beta annette)] 25 mg PO BID #60 tab 11/06/19 Following Prescrptions Were Given to Patient: Aspirin [Aspirin, Baby] 81 mg PO DAILY@0800 #30 tab.chew Transmission Status: [id number] Atorvastatin Calcium [Lipitor] 20 mg PO QHS #30 tab Transmission Status: [id number] Metoprolol Tartrate [Lopressor (beta annette)] 25 mg PO BID #60 tab Transmission Status: [id number] Clopidogrel Bisulfate [Plavix] 75 mg PO DAILY #30 tab Transmission Status: [id number] Lisinopril [Zestril] 10 mg PO BID #60 tab Transmission Status: [id number] Primary Care Physician: Brendon Stock DO [Primary Care Provider] - Please follow up with your Primary Care Physician in: 1 Week Please Follow Up With: Gabe Sepulveda MD When: 2 Weeks, may see SYRUP MAKER COOK/PA Disposition: Home Minutes spent on discharge:: 35 Patient Condition:: Stable Medical Necessity - Tobacco Use Smoking Status: Current every day smoker Tobacco Use: Cigarettes Meaningful Use Info Meaningful Use Diagnoses (Choose all that apply): AMI - AMI/Post PCI/Angioplasty Aspirin given w/in 24hrs of arrival?: Yes ASA at discharge?: Yes Statins at discharge?: Yes Brooks/ARB at discharge?: Yes Beta Annette at discharge?: Yes Done w/ Acute DE measure.: Yes Documented LVEF (%): 65 <Mark Maldonado F - Last Filed: 11/06/19 10:41> Discharge Date and Diagnosis - Secondary Discharge Diagnosis Chronic Problems Obesity (Chronic) Smoking (Chronic) Hospital Course and Treatment Summary of Care Provided: The patient is a 44 year old M [] - Physical Exam Vitals/I&O's: Vital Signs Temp Pulse Resp BP Pulse Ox 97.6 F L 73 16 150/73 H 100 11/06/19 09:20 11/06/19 09:20 11/06/19 09:20 11/06/19 09:20 11/06/19 09:20 Oxygen Delivery Method Room Air Weight: 379 lb 10.176 oz Body Mass Index (BMI) 56.0 Intake and Output for Last 24 Hours 11/04/19 11/05/19 11/06/19 23:59 23:59 23:59 Intake Total 1787.5 / 1787.5 1903.75 / 1903.75 Balance 1787.5 / 1787.5 1903.75 / 1903.75 Laboratory Results 11/05/19 10:20: Total Bilirubin 0.20, Direct Bilirubin 0.10, AST 17, ALT 26, Alkaline Phosphatase 81, Troponin I 1.290 H*, Total Protein 8.0, Albumin 3.3, Globulin 4.7 H, Triglycerides 98, Cholesterol 125, LDL Cholesterol 76, VLDL Cholesterol 20, HDL Cholesterol 29 L 11/05/19 10:20: D-Dimer Quant (PE/DVT) 0.44 11/05/19 14:05: Troponin I 1.530 H* 11/06/19 05:49: WBC 12.7 H, RBC 4.92, Hgb 14.2, Hct 43.8, MCV 89.0, MCH 28.9, MCHC 32.4, RDW Std Deviation 44.7 H, RDW Coeff of Rey 13.8, Plt Count 204, MPV 12.1 H 11/06/19 05:49: Sodium 139, Potassium 4.0, Chloride 108 H, Carbon Dioxide 25.0, Anion Gap 6, BUN 11, Creatinine 0.78, Estim Creat Clear Calc 119.60, Est GFR (MDRD) Af Amer 138, Est GFR (MDRD) Non-Af 114, BUN/Creatinine Ratio 14.0, Glucose 136 H, Calcium 8.5, Total Bilirubin 0.30, AST 19, ALT 25, Alkaline Phosphatase 75, Troponin I 0.802 H*, Total Protein 7.4, Albumin 3.1 L, Globulin 4.3 H, Albumin/Globulin Ratio 0.7 L Current Medications Aspirin (Aspirin, Baby) 81 mg PO DAILY@0800 [facility] Last Admin: 11/06/19 09:20 Dose: 81 mg Documented by: Atorvastatin Calcium (Lipitor) 20 mg PO QHS [facility] Last Admin: 11/05/19 21:31 Dose: 20 mg Documented by: Clopidogrel Bisulfate (Plavix) 75 mg PO DAILY [facility] Last Admin: 11/06/19 09:20 Dose: 75 mg Documented by: Dextrose (D50w Syringe) 0 gm IV X1 PRN; Protocol PRN Reason: Hypoglycemia Glucagon () 1 mg IM .X1 PRN PRN Reason: Hypoglycemia Sodium Chloride () 1,000 mls @ 15 mls/hr IV .Q48H [facility] Last Infusion: 11/05/19 11:55 Dose: Infused Documented by: Sodium Chloride () 1,000 mls @ 75 mls/hr IV .[id number] [facility] Last Infusion: 11/06/19 10:31 Dose: Infused Documented by: Lisinopril (Zestril) 10 mg PO BID [facility] Last Admin: 11/06/19 09:20 Dose: 10 mg Documented by: Metoprolol Tartrate (Lopressor (Beta Annette)) 25 mg PO BID [facility] Last Admin: 11/06/19 09:20 Dose: 25 mg Documented by: Nitroglycerin (Nitrostat) 0.4 mg SUBLINGUAL Q5M PRN PRN Reason: CARDIAC/CHEST PAIN Pantoprazole Sodium (Protonix) 40 mg PO DAILY [facility] Last Admin: 11/06/19 09:20 Dose: 40 mg Documented by: Sodium Chloride () 10 - 40 ml IV UD PRN PRN Reason: SALINE FLUSH Addendum: Dr. Maldonado I personally examined the patient and reviewed the chart. I agree with the above. 44-year-old male with a history of tobacco abuse with cigarettes 1-1/2 packs/day as well as morbid obesity presented to the emergency room with chest pain. His initial troponin was negative however he did peak to 1.53 and was taken for cardiac cath. He had no coronary artery disease that required stenting and therefore he was placed on aggressive medical management. Initially when he presented he was only on omeprazole and diazepam, he is now being discharged on aspirin, Plavix, Lipitor, lisinopril, metoprolol. He will need to continue all these medications. I also had a discussion with him on lifestyle modification and weight loss. I discussed with him the discharge plan and he understands the risk and benefits of going home. He should follow-up at least with telehealth with his primary care doctor, and follow-up with cardiology when appropriate. Inpatient E&M: [id number] [facility]
--- NOTE | 2019-11-06 10:35 | PN.CARD_ITS ---
Subjectve: The patient was evaluated earlier this day. He appeared to be resting comfortably. He had no new acute complaints. Objective: Vital Signs Temp Pulse Resp BP Pulse Ox 97.6 F L 73 16 150/73 H 100 11/06/19 09:20 11/06/19 09:20 11/06/19 09:20 11/06/19 09:20 11/06/19 09:20 Oxygen Delivery Method Room Air Weight: 379 lb 10.176 oz Body Mass Index (BMI) 56.0 Intake and Output for Last 24 Hours 11/04/19 11/05/19 11/06/19 23:59 23:59 23:59 Intake Total 1787.5 / 1787.5 1903.75 / 1903.75 Balance 1787.5 / 1787.5 1903.75 / 1903.75 General: Awake, Alert, Oriented x 3, Cooperative, No Acute Distress, Obese HEENT: Atraumatic, Normocephalic, PERRL, EOMI, Sclera Non Icteric Oral: Moist Mucosa Neck: Supple, Good ROM, No JVD Lungs: Clear to auscultation Cardiovascular: Regular Rhythm, Normal S1, Normal S2 Abdomen: Bowel Sounds Present, Soft, Non Tender Extremities: No Cyanosis, No Clubbing, No edema Neurological: No Focal Motor or Sensory Deficit Psych/Mental Status: Appropriate 11/05/19 10:20: Total Bilirubin 0.20, Direct Bilirubin 0.10, Troponin I 1.290 H* , Triglycerides 98, Cholesterol 125, LDL Cholesterol 76, VLDL Cholesterol 20, HDL Cholesterol 29 L 11/05/19 10:20: D-Dimer Quant (PE/DVT) 0.44 11/05/19 14:05: Troponin I 1.530 H* 11/06/19 05:49: WBC 12.7 H, RBC 4.92, Hgb 14.2, Hct 43.8, MCV 89.0, MCH 28.9, MCHC 32.4, Plt Count 204, MPV 12.1 H 11/06/19 05:49: Sodium 139, Potassium 4.0, Chloride 108 H, Carbon Dioxide 25.0, Anion Gap 6, BUN 11, Creatinine 0.78, Est GFR (MDRD) Af Amer 138, Est GFR (MDRD) Non-Af 114, BUN/Creatinine Ratio 14.0, Glucose 136 H, Calcium 8.5, Total Bilirubin 0.30, Troponin I 0.802 H* Rhythm: Sinus rhythm Medical Necessity - Tobacco Use Smoking Status: Current every day smoker Tobacco Use: Cigarettes Assessment/Plan 1. Non-ST segment elevation RI The patient has undergone further evaluation noninvasively and invasively. His overall LV systolic function appears to be preserved. His coronary anatomy demonstrated mild luminal irregularities. He has been evaluated for possible thromboembolic disease with a d-dimer. This was negative. He has had no other definitive explanation for his abnormal troponin I level compatible with a non-ST segment elevation RI. There is concern at the moment based upon the patient's presentation with hypertension as to whether or not this a source for a type II non-ST segment elevation RI. At the moment he will continue medical management. This will include aspirin, antiplatelet therapy for Plavix for period of time, beta-jayson therapy, MICK inhibitor therapy, and lipid-lowering therapy. Over time he will have outpatient cardiovascular follow-up/medical management as deemed appropriate. 2. Tobacco abuse He has been counseled on the need to discontinue tobacco use. 3. Obesity He has been counseled on the need to adjust diet and exercise as deemed appropriate to hopefully bring his weight under better control to assist with his cardiovascular risk factors. Comment: The patient's case was discussed and reviewed with Dr. Cowan. This note was generated using a voice recognition system and there may be inc orrect words, spelling or punctuation that were not noted when reviewing the office note prior to saving.
== END 2019-11-06 10:46 | disposition home or self-care (01) | DRG 281 ==
LOC: ED 05:55 → PCU 07:20
PROVIDERS: Internal Medicine; Internal Medicine Cardiovascular Disease; Admitting Provider Family Medicine; Emergency Provider Emergency Medicine; PCP Preventive Medicine Occupational Medicine; Visit Provider Family Medicine
DX: I21.4 Non-ST elevation (NSTEMI) myocardial infarction (principal); Z68.43 Body mass index [BMI] 50.0-59.9, adult; E66.01 Morbid (severe) obesity due to excess calories; K21.9 Gastro-esophageal reflux disease without esophagitis; I10 Essential (primary) hypertension; F17.210 Nicotine dependence, cigarettes, uncomplicated
CPT/HCPCS: 36415; 71045; 80048; 80053; 80061; 80076; 82962; 84484; 85025; 85027; 85379; 93005; 93306; 93458; 97802; 99152; 99153; 99285; 99406; J7030; Q9957; Q9967; A4216; C1769; C1894

== ENCOUNTER 2022-03-05 00:17 | Emergency (ER) | payer BC, SELFPAY ==
[2022-03-05 00:17] VITALS: BP 161/102; PULSE 85; RESP 18; TEMP 36.4; O2SAT 98; BMI 56.1
--- NOTE | 2022-03-05 00:37 | RAD_ITS ---
STUDY: X-RAY - RIGHT KNEE REASON FOR EXAM: Male, 46 years old. pain TECHNIQUE: 3 view(s) of the knee. COMPARISON: None. FINDINGS: Normal knee alignment. No effusion. No fracture. No aggressive osseous lesion. Joint spacing is preserved. RAD/Knee 3 Views IMPRESSION: No acute finding. Electronically Signed: Prince Nash MD at 1:17 EDT ,
--- NOTE | 2022-03-05 00:38 | EDS_ITS ---
HPI History of Present Illness Chief Complaint: Lower Extremity Injury Informant: patient Occured/Mechanism Comment: Unknown if injured; started when he used his leg to help climb up into his truck earlier in the day Onset/Context/Timing Onset: Today Context: Sudden Onset Timing: Continuous Quality of Pain: - (pain) Location: Right right anterior distal knee Maximum Severity: Severe Worsened by: Certain positions, bending Relieved by: Keeping straight even if walking Associated Symptoms Associated Symptoms: Negative for Parasthesia, Weakness or Loss of Funtion Narrative Narrative: Patient states he is on his feet and does a lot of walking throughout the day for work. After work today he was getting into his truck and noticed an acute onset of pain in the distal aspect of his right knee anteromedially. Lying down tonight it was really hurting, trying to get up steps or out of bed is really painful but once he is on his feet and keeping it straight it does not hurt. No other issues or symptoms acutely. [facility] Medical History Chest pain Essential hypertension NSTEMI (non-ST elevated myocardial infarction) Obesity Smoking Tobacco abuse Home Medications diazepam 5 mg tablet 5 mg PO Q8 PRN Muscle Spasm #10 tabs 11/17/18 [Rx Last Taken Unknown] aspirin 81 mg chewable tablet 81 mg PO DAILY@0800 ##30 11/06/19 [Rx Last Taken Unknown] atorvastatin 20 mg tablet 20 mg PO QHS #30 tabs 11/06/19 [Rx Last Taken Unknown] clopidogrel 75 mg tablet 75 mg PO DAILY #30 tabs 11/06/19 [Rx Last Taken Unknown] lisinopril 10 mg tablet 10 mg PO BID #60 tabs 11/06/19 [Rx Last Taken Unknown] metoprolol tartrate 25 mg tablet 25 mg PO BID #60 tabs 11/06/19 [Rx Last Taken Unknown] pantoprazole 40 mg tablet,delayed release 40 mg PO DAILY 11/26/19 [History Last Taken Unknown] Allergy/AdvReac Type Severity Reaction Status Date / Time Corticosteroids AdvReac Upset Verified 03/05/22 00:21 (Glucocorticoids) Stomach Family History Father Myocardial infarction Mother Myocardial infarction CAD (coronary artery disease) Surgical History History of left heart catheterization (LHC) (~11/05/19) Social History Smoking Status: Current every day smoker tobacco type: cigarettes alcohol intake: current details: occasional substance use type: does not use caffeine: Yes Type: carbonated beverages Number of servings: 8 ROS ROS ED Constitutional Constitutional ED: Denies chills or fever(s) Musculoskeletal Musculoskeletal: Reports extremity pain; Denies neck pain Integumentary Denies Abrasions, rash or wounds Neurologic Neurologic: Denies paresthesias or weakness EXAM Physical Exam Const Vital Signs: 03/05/22 00:17 Temperature 97.5 F L Temperature Source Temporal Pulse Rate 85 Respiratory Rate 18 Blood Pressure 161/102 H Blood Pressure Mean 121 Pulse Ox 98 Oxygen Delivery Method Room Air Positive well nourished, well developed and obese General Appearance ED: well developed and NAD Nutritional Appearance: obese Neck full ROM and supple Back/Spine normal ROM and normal to inspection Extremity normal to inspection and full ROM Extremity Narrative: Pain with bending right knee but able. All ligaments stable and intact with stressing, there is pain when stressing the ACL. Pain is in the anterior and medial aspects of the tibia and there is no tenderness or swelling. No e ffusion. Extensor mechanism intact. No rash or excessive warmth of the joint. Neurovascular intact distally. Neuro oriented x3, no focal motor deficits and no sensory deficits noted Sensorium / Orientation: alert Psych mental status grossly normal and thought process normal Skin no wounds Rashes: no rashes MDM MDM MDM Narrative Medical decision making narrative: 3 view x-rays of the right knee on my interpretation are negative for anything acute. Patient does not have tenderness at the plica synovalis, he does not have any bony tenderness and his x-rays are negative. Differential includes meniscus injury and/or arthritis which certainly he could have due to significant amount of walking and bending along with his morbid obesity, or other internal derangement. He does not have a large effusion so I do not suspect a tear, and he has no instability. At this time we will place him in an Brooks wrap, give him a dose of anti-inflammatories tonight but since he is on aspirin and clopidogrel not going to prescribe more these until his doctor states it is safe for him to discontinue the clopidogrel, it seems his remote cath performed after an NSTEMI had mild luminal irregularities in some of the vessels, but no critical disease, so he was treated medically which included clopidogrel for a period of time. Discussed following up with his nozzle cement sprayer helper at some point to discuss that further, but that does not need to be emergent. Follow-up with Ortho as needed if his pain does not resolve in a week or so. When I discussed his cath report and the fact that his nozzle cement sprayer helper had discussed putting him on clopidogrel for some limited period of time, he states he is never followed up with a nozzle cement sprayer helper before. I gave him his information so that he can make a follow-up appointment to discuss all of his medications. Discharge Plan Triage Chief Complaint: Lower Extremity Injury ED Provider: Dao Chery Dx/Rx/DC Orders Clinical Impression: Injury of right knee Instructions: Reducing Knee Pain and Swelling Prescriptions: No Action pantoprazole 40 mg tablet,delayed release (DR/EC) 40 mg PO DAILY diazepam 5 MG tablet 5 mg PO Q8 PRN (Reason: Muscle Spasm) Qty: 10 0RF atorvastatin 20 MG tablet 20 mg PO QHS Qty: 30 0RF clopidogrel 75 MG tablet 75 mg PO DAILY Qty: 30 0RF lisinopril 10 MG tablet 10 mg PO BID Qty: 60 0RF aspirin 81 MG tablet,chewable 81 mg PO DAILY@0800 Qty: 30 0RF metoprolol tartrate 25 MG tablet 25 mg PO BID Qty: 60 0RF Primary Care Provider: Brendon Stock Referrals: Gabe Sepulveda MD [Med Staff - Active Staff] - (call for follow up appt) Brendon Stock DO [Primary Care Provider] - Fadi Bailey MD [Med Staff - Active Staff] - 1 Week if not improving Disposition Disposition: Home, Self Care
[2022-03-05] MEDS: traMADol 50 MG Tablet PO (00:56)
[2022-03-05] MEDS: Naproxen 250 MG Tablet 500 MG PO (00:56)
== END 2022-03-05 01:18 | disposition home or self-care (01) ==
PROVIDERS: Emergency Provider Emergency Medicine; PCP Preventive Medicine Occupational Medicine; Visit Provider Emergency Medicine
DX: S89.91XA Unspecified injury of right lower leg, initial encounter (principal); F17.210 Nicotine dependence, cigarettes, uncomplicated; I25.2 Old myocardial infarction; E66.9 Obesity, unspecified; X58.XXXA Exposure to other specified factors, initial encounter
CPT/HCPCS: 73562; 99283

== ENCOUNTER → 2023-12-21 | Outpatient (CLI) | payer BC, SELFPAY ==
--- NOTE | 2023-12-21 | LES_PTH ---
PATIENT: JASON CALDERON LOC: [facility] U#:[id number] AGE/SX: 48/M ROOM: RE12/21/[address]: Dr. Andre Muhammad MD : 1975 BED: DIS: 12/21/2023 SPEC #: [id number] RECD: 12/21/23 09:54 STATUS: KRAL ECHEVERRIAMadyson #: [id number] THIAGO: 12/21/23 00:[address]: Andre Muhammad DEPT: SURGICAL PATHOLOGY RECD BY: Lacey Mead ENTERED: 12/21/23 12:28 SP TYPE: Lesion OTHR DR: Dr. Brendon Stock, DO Tissues: Skin of eyelid, NOS Procedures: Surgery Specimen Level IV HEADER OPERATION: Right upper lesion removal PRE-OP DIAGNOSIS: Growth of eyelid TISSUE SUBMITTED: Right upper eyelid lesion MICROSCOPIC DIAGNOSIS Right upper eyelid lesion, excisional biopsy: Epidermal inclusion cyst. RAY/ 12/22/2023 MICROSCOPIC DESCRIPTION Slides are reviewed. GROSS DESCRIPTION Received in fixative is one container labeled with the patient's name and designated Right upper eyelid. The specimen consists of a piece of weir-white skin measuring 0.6 x 0.5 x 0.4cm. The specimen is inked, bisected and submitted entirely in one cassette. RAY/ 12/21/2023 TC:5 CPT:90432
== END | disposition home or self-care (01) ==
LOC: LABSPEC 10:07
PROVIDERS: PCP Preventive Medicine Occupational Medicine; Referring Provider Ophthalmology; Visit Provider Ophthalmology
DX: H02.9 Unspecified disorder of eyelid (principal)
CPT/HCPCS: 88305

== ENCOUNTER 2024-07-06 16:57 | Emergency (ER) | payer BC, SELFPAY ==
[2024-07-06 16:58] VITALS: BP 173/86; PULSE 77; RESP 18; TEMP 36.3; O2SAT 99; BMI 53.3
[2024-07-06 17:14] VITALS: BMI 53.1
[2024-07-06 17:37] LABS: Bedside Glucose 161 mg/dL (74-106)
[2024-07-06] MEDS: Triamcinolone Acetonide 40 MG/ML Vial IM (17:37)
[2024-07-06 17:46] VITALS: BP 166/84; PULSE 78; RESP 18; TEMP 36.6; O2SAT 98
--- NOTE | 2024-07-06 18:01 | EDS_ITS ---
HPI History of Present Illness Chief Complaint: Neuro S/Sx Informant: patient and spouse/S.O. Narrative Narrative: Presents with spouse evaluation symptoms occurring 36 hours prior to arrival. Awake and drink water is running out of his mouth on the left side. He noted facial droop. He states since then progressive tingling sensations in his face. 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 Denies headache. He was in [place] for the past week, he denies any recent tick bites. Denies any rash. Prior similar symptoms: Yes PFSH [facility] Medical History Essential hypertension Tobacco abuse NSTEMI (non-ST elevated myocardial infarction) Smoking Obesity Chest pain Home Medications ?Medication ?Instructions ?Recorded ?Last Taken ?Type diazepam 5 mg tablet 5 mg PO Q8 PRN Muscle Spasm #10 11/17/18 Unknown Rx tabs aspirin 81 mg chewable tablet 81 mg PO DAILY@0800 ##30 11/06/19 Unknown Rx atorvastatin 20 mg tablet 20 mg PO QHS #30 tabs 11/06/19 Unknown Rx clopidogrel 75 mg tablet 75 mg PO DAILY #30 tabs 11/06/19 Unknown Rx lisinopril 10 mg tablet 10 mg PO BID #60 tabs 11/06/19 Unknown Rx metoprolol tartrate 25 mg tablet 25 mg PO BID #60 tabs 11/06/19 Unknown Rx pantoprazole 40 mg tablet,delayed 40 mg PO DAILY 11/26/19 Unknown History release valacyclovir 1 gram tablet 1,000 mg PO TID #21 tabs 07/06/24 Unknown Rx Allergy/AdvReac Type Severity Reaction Status Date / Time Corticosteroids AdvReac Upset Verified 07/06/24 16:58 (Glucocorticoids) Stomach Family History Father Myocardial infarction Mother Myocardial infarction CAD (coronary artery disease) Surgical History History of left heart catheterization (LHC) (~11/05/19) Social History Smoking Status: Current every day smoker tobacco type: cigarettes alcohol intake: current details: occasional substance use type: does not use caffeine: Yes Type: carbonated beverages Number of servings: 8 ROS ROS ED Constitutional Constitutional ED: Denies chills, fever(s) or sweats Eyes Eyes: Denies change in vision ENT ENT ED: Denies dysphagia or sore throat Cardiovascular Cardiovascular: Denies chest pain, leg edema, palpitations or racing heartbeat Respiratory/Chest Respiratory/Chest: Denies cough, dyspnea or dyspnea on exertion Gastrointestinal Gastrointestinal: Denies abdominal pain, diarrhea, nausea or vomiting Genitourinary Genitourinary ED: Denies dysuria, hematuria or urinary frequency Musculoskeletal Musculoskeletal: Denies back pain, extremity pain or neck pain Integumentary Denies rash or wounds Neurologic Neurologic: Reports weakness and other Details: Left facial weakness ; Denies headache(s) or paresthesias EXAM Physical Exam Const Vital Signs: 07/06/24 16:58 07/06/24 17:46 Temperature 97.3 F L 97.9 F Temperature Source Temporal Pulse Rate 77 78 Respiratory Rate 18 18 Blood Pressure 173/86 H 166/84 H Blood Pressure Mean 115 111 Pulse Ox 99 98 Oxygen Delivery Method Room Air Positive well nourished and well developed General Appearance ED: well developed and NAD HEENT Reports moist mucous membranes HEENT Narrative: Left-sided facial weakness, no sparing the forehead. Sensation was symmetric. normocephalic and atraumatic Eyes EOMs intact bilaterally and conjunctivae normal General Eye ED: Yes normal appearance of both eyes Neck no lymphadenopathy and supple General: Negative for tenderness Chest Wall Chest: Negative for tenderness Resp normal respiratory effort and normal air movement Effort and Inspection: symmetric chest movement; Negative for respiratory distress Cardio regular rate, regular rhythm and no murmurs Peripheral Pulses: pulses 2+ throughout GI normal to inspection, nondistended, normoactive bowel sounds and non-tender Palpation: Negative for guarding or rebound tenderness present Back/Spine no CVA tenderness and no thoracic nor lumbar tenderness Extremity normal to inspection General Extremety ED: Negative for edema or tenderness General Extremity: Negative for edema Neuro oriented x3 and no sensory deficits noted Sensorium / Orientation: awake and alert Skin no rashes or lesions noted and no wounds MDM MDM MDM Narrative Medical decision making narrative: Interventions / MDM: Differential diagnosis: Left-sided Chávez's palsy, history of diabetes Diagnosis considered but do not suspect:stroke however exam and history more consistent with Chávez's palsy. My EKG interpretation: N/A Imaging independently reviewed and interpreted by myself: N/A External documents reviewed: N/A Test considered but not ordered:N/A ED course: Patient clinical exam consistent with Chávez's palsy. There is no forehead sparing. He is a diabetic blood glucose check was 161. He states he does not do well with prednisone due to GI upset. He agreed with Kenalog IM which was ordered. He will monitor his glucose. Will start valacyclovir as symptoms started within 72 hours. He will follow-up with his PCP. All ques tions were answered. Re-evaluation: stable Disposition discussed with patient/family/significant other: Patient and spouse Case discussed with consulting clinician: N/A This note was generated with [employer] dictation software. It may contain incorrect words, spelling, and punctuation that were not noted in checking the note before signing. Lab Data Labs: Laboratory Results - last 24 hr 07/06/24 17:19 POC Glucose 161 H Discharge Plan Triage Chief Complaint: Neuro S/Sx ED Provider: Otis Hill Dx/Rx/DC Orders Clinical Impression: Left-sided Chávez's palsy, Weakness on left side of face, History of diabetes mellitus Instructions: ED Chávez's Palsy Prescriptions: New valacyclovir 1 gram tablet 1,000 mg PO TID Qty: 21 0RF No Action pantoprazole 40 mg tablet,delayed release (DR/EC) 40 mg PO DAILY diazepam 5 MG tablet 5 mg PO Q8 PRN (Reason: Muscle Spasm) Qty: 10 0RF atorvastatin 20 MG tablet 20 mg PO QHS Qty: 30 0RF clopidogrel 75 MG tablet 75 mg PO DAILY Qty: 30 0RF lisinopril 10 MG tablet 10 mg PO BID Qty: 60 0RF aspirin 81 MG tablet,chewable 81 mg PO DAILY@0800 Qty: 30 0RF metoprolol tartrate 25 MG tablet 25 mg PO BID Qty: 60 0RF Primary Care Provider: Brendon Stock Referrals: Brendon Stock DO [Primary Care Provider] - 1-2 Weeks Activity Restrictions/Additional Instructions: Status post Kenalog IM. Monitor your glucose will be temporarily elevated. Take antivirals as prescribed. Follow-up with your doctor. Print Language: Belarusian Disposition Disposition: Home, Self Care Discharge Date/Time: 07/06/24 17:47
== END 2024-07-06 17:47 | disposition home or self-care (01) ==
PROVIDERS: Emergency Provider Emergency Medicine; PCP Preventive Medicine Occupational Medicine; Visit Provider Emergency Medicine
DX: G51.0 Bell's palsy (principal); E11.9 Type 2 diabetes mellitus without complications; I10 Essential (primary) hypertension; I25.2 Old myocardial infarction; E66.9 Obesity, unspecified; F17.210 Nicotine dependence, cigarettes, uncomplicated; Z79.82 Long term (current) use of aspirin; Z79.02 Long term (current) use of antithrombotics/antiplatelets; Z79.899 Other long term (current) drug therapy
CPT/HCPCS: 82962; 96372; 99282

== ENCOUNTER 2024-07-14 08:53 | Emergency (ER) | payer BC, SELFPAY ==
[2024-07-14 08:55] VITALS: BP 137/90; PULSE 92; RESP 22; TEMP 36; O2SAT 100
--- NOTE | 2024-07-14 09:16 | RAD_ITS ---
STUDY: X-RAY - LUMBAR SPINE REASON FOR EXAM: Male, 48 years old. back pain TECHNIQUE: 2 view(s) of the lumbar spine were obtained. COMPARISON: None FINDINGS: Normal lumbar lordosis. There is no substantial scoliosis. There is a normal alignment of the vertebrae. Normal vertebral bodies and endplates. This spaces in the upper lumbar spine are well preserved, there is age consistent narrowing of L4-5 and L5-S1.. There is no demonstrated fracture. The soft tissue structures are unremarkable. RAD/Lumbar Spine 2 or 3 Views IMPRESSION: Mild age consistent degenerative changes in the lower lumbar spine. Electronically Signed: Vin Mcgee MD at 9:47 EST ,
--- NOTE | 2024-07-14 09:17 | EDS_ITS ---
HPI History of Present Illness Chief Complaint: Back Informant: patient and family Narrative Narrative: 48-year-old male presenting to the emergency room with the chief complaint of back pain. Patient states he has had some discomfort in the right lumbar back region that has progressively worsened over the past couple days. It is worse with any type of movement. It hurts worse when he goes to stand up straight. He denies any radiation to the leg. He notes no bowel or bladder dysfunction. No numbness of the right leg. He notes chronic left-sided sciatic injury with lateral leg numbness. Patient states that he was recently diagnosed with Chávez's palsy. He denies any trauma. No fever. He states he is not immunosuppressed. No prior back surgery. [facility] Medical History Essential hypertension Tobacco abuse NSTEMI (non-ST elevated myocardial infarction) Smoking Obesity Chest pain Home Medications ?Medication ?Instructions ?Recorded ?Last Taken ?Type diazepam 5 mg tablet 5 mg PO Q8 PRN Muscle Spasm #10 11/17/18 Unknown Rx tabs aspirin 81 mg chewable tablet 81 mg PO DAILY@0800 ##30 11/06/19 Unknown Rx atorvastatin 20 mg tablet 20 mg PO QHS #30 tabs 11/06/19 Unknown Rx clopidogrel 75 mg tablet 75 mg PO DAILY #30 tabs 11/06/19 Unknown Rx lisinopril 10 mg tablet 10 mg PO BID #60 tabs 11/06/19 Unknown Rx metoprolol tartrate 25 mg tablet 25 mg PO BID #60 tabs 11/06/19 Unknown Rx pantoprazole 40 mg tablet,delayed 40 mg PO DAILY 11/26/19 Unknown History release valacyclovir 1 gram tablet 1,000 mg PO TID #21 tabs 07/06/24 Unknown Rx cyclobenzaprine 10 mg tablet 10 mg PO TID PRN Muscle Spasm #15 07/14/24 Unknown Rx TABLETS oxycodone-acetaminophen 5 mg-325 1 tab PO Q6H PRN pain 3 days #12 07/14/24 Unknown Rx mg tablet (Percocet) tabs Allergy/AdvReac Type Severity Reaction Status Date / Time Corticosteroids AdvReac Upset Verified 07/06/24 16:58 (Glucocorticoids) Stomach Family History Father Myocardial infarction Mother Myocardial infarction CAD (coronary artery disease) Surgical History History of left heart catheterization (LHC) (~11/05/19) Social History Smoking Status: Current every day smoker tobacco type: cigarettes alcohol intake: current details: occasional substance use type: does not use caffeine: Yes Type: carbonated beverages Number of servings: 8 ROS ROS ED Constitutional Constitutional ED: Denies chills, fever(s) or weight loss Eyes Eyes: Denies change in vision or diplopia ENT ENT ED: Denies ear pain, rhinorrhea or sore throat Cardiovascular Cardiovascular: Denies chest pain, orthopnea, palpitations or racing heartbeat Respiratory/Chest Respiratory/Chest: Denies cough, dyspnea or orthopnea Gastrointestinal Gastrointestinal: Denies abdominal pain, diarrhea, nausea or vomiting Genitourinary Genitourinary ED: Denies dysuria, hematuria or urinary frequency Musculoskeletal Musculoskeletal: Reports back pain; Denies arthralgias or myalgias Integumentary Denies abscess or rash Neurologic Neurologic: Denies headache(s), paresthesias or weakness Psychiatric Psychiatric: Denies anxiety, depression, suicidal ideation or suicidal thoughts Endocrine Endocrinology: Denies polydipsia, polyphagia or polyuria Allergic/Immunologic Allergic/Immunologic ED: Denies mouth swelling, tongue swelling or urticaria EXAM Physical Exam Const Vital Signs: 07/14/24 08:55 Temperature 96.8 F L Temperature Source Temporal Pulse Rate 92 Respiratory Rate 22 H Blood Pressure 137/90 H Blood Pressure Mean 105 Pulse Ox 100 Positive well nourished, well developed and obese General Appearance ED: well developed and NAD Nutritional Appearance: obese HEENT Reports normocephalic, head/scalp atraumatic and moist mucous membranes Eyes PERRL and EOMs intact bilaterally Neck no lymphadenopathy, supple and no JVD Resp normal respiratory effort and clear to auscultation bilaterally Cardio regular rate, regular rhythm and no murmurs GI normal to inspection, nondistended, normoactive bowel sounds and non-tender Palpation: soft Back/Spine no CVA tenderness Back/Spine Narrative: Painful range of motion even sitting up in the bed. He points to the right lumbar paraspinal region as the area that hurts. I do not appreciate any rashes on the skin. Body habitus is significant and does not allow me to palpate deeply into the musculature. Extremity normal to inspection General Extremety ED: Negative for edema General Extremity: Negative for edema Neuro oriented x3 and CN's II-XII intact bilaterally Neuro Narrative: No sensory deficits noted of the right lower extremity Sensorium / Orientation: alert Motor Exam: strength 5/5 throughout Deep Tendon Reflexes: Rt Patellar (L4): 2+, Lt Patellar (L4): 2+, Rt Ankle (S1): 2+ and Lt Ankle (S1): 2+ Deep Tendon Reflexes Back: Rt Patellar (L4): 2+, Lt Patellar (L4): 2+, Rt Ankle (S1): 2+ and Lt Ankle (S1): 2+ Psych mental status grossly normal Mood & Affect: Negative for depressed or tearful Skin no rashes or lesions noted and no wounds MDM MDM MDM Narrative Medical decision making narrative: Differential diagnosis includes but not limited to lumbar muscle spasm lumbar radiculopathy degenerative disc disease degenerative arthrosis biomechanical dysfunction due to morbid obesity discitis epidural hematoma other hematoma abscess My independent interpretation of the plain films of the lumbar spine is mild degenerative changes. There is straightening of the normal lordotic curve. Patient received a dose of Toradol and Norflex. I think that this is most likely muscular spasm. I do not appreciate any neurologic deficits. I do not think that this is discitis or other infectious process. I do not suspect hematoma or abscess. Patient was started on muscle relaxants pain medication. Patient would probably benefit from physical therapy and we will refer him to primary care. Weight reduction would be coppola for the long-term success of his back. History & Record Review Discussion w/independent historian: Patient and Family Radiography Diagnostic Testing: Clinical Impression(s) from Imaging Studies Lumbar Spine X-Ray 07/14/24 09:16 IMPRESSION: Mild age consistent degenerative changes in the lower lumbar spine. Electronically Signed: Vin Mcgee MD at 9:47 EST , Discharge Plan Triage Chief Complaint: Back ED Provider: Eitan Raygoza Dx/Rx/DC Orders Clinical Impression: Acute back pain, Lumbar paraspinal muscle spasm, Obesity Instructions: Relieving Back Pain, ED Back Spasm, No Trauma Prescriptions: New cyclobenzaprine 10 mg tablet 10 mg PO TID PRN (Reason: Muscle Spasm) Qty: 15 0RF oxycodone-acetaminophen [Percocet] 5-325 mg tablet 1 tab PO Q6H PRN (Reason: pain) 3 Days Qty: 12 0RF No Action pantoprazole 40 mg tablet,delayed release (DR/EC) 40 mg PO DAILY diazepam 5 MG tablet 5 mg PO Q8 PRN (Reason: Muscle Spasm) Qty: 10 0RF atorvastatin 20 MG tablet 20 mg PO QHS Qty: 30 0RF clopidogrel 75 MG tablet 75 mg PO DAILY Qty: 30 0RF lisinopril 10 MG tablet 10 mg PO BID Qty: 60 0RF aspirin 81 MG tablet,chewable 81 mg PO DAILY@0800 Qty: 30 0RF metoprolol tartrate 25 MG tablet 25 mg PO BID Qty: 60 0RF valacyclovir 1 gram tablet 1,000 mg PO TID Qty: 21 0RF Primary Care Provider: Brendon Stock Referrals: Brendon Stock DO [Primary Care Provider] - 1 Week Print Language: Japanese Disposition Disposition: Home, Self Care
[2024-07-14] MEDS: Orphenadrine 60 MG/2 ML Ampul IM (09:24)
[2024-07-14] MEDS: Ketorolac 60 MG/2 ML Vial IM (09:25)
[2024-07-14 10:08] VITALS: BP 168/76; PULSE 90; RESP 22; TEMP 36.6; O2SAT 96
--- NOTE | 2024-07-14 10:12 | ED.RN ---
PT STATES SHOTS HAVE NOT HELPED AT ALL. REQUESTS A SHOT
== END 2024-07-14 10:16 | disposition home or self-care (01) ==
PROVIDERS: Emergency Provider Emergency Medicine; PCP Preventive Medicine Occupational Medicine; Visit Provider Emergency Medicine
DX: M54.50 Low back pain, unspecified (principal); M62.830 Muscle spasm of back; I10 Essential (primary) hypertension; I25.2 Old myocardial infarction; E66.9 Obesity, unspecified; F17.210 Nicotine dependence, cigarettes, uncomplicated; Z79.82 Long term (current) use of aspirin; Z79.899 Other long term (current) drug therapy; Z79.02 Long term (current) use of antithrombotics/antiplatelets
CPT/HCPCS: 72100; 96372; 99282

== ENCOUNTER 2025-02-20 09:38 | Outpatient (RCR) | payer BC, SELFPAY ==
--- NOTE | 2025-02-20 16:26 | HP.OTEVAL_ITS ---
Patient's Visit Information Visit Information Visit Information: JASON CALDERON is a 49 year old M, referred to Occupational Therapy by IZAIAH SALAS, with a diagnosis of sciatic neuropathy, left leg edema. Date of Evaluation: 02/20/25 Occupational Therapist: Stephanie Smyth, ASHUTOSHR/Karlene, CHT Subjective Subjective: This 49 year old male was seen for OT eval with dx of left sciatic neuropathy, left leg edema. pt states he has had swelling for over two years since he had to have brain sx. pt states he has a foot drop on is left and muscle wasting due to nerve damage. Pt states left foot swelling comes and goes the more he is on is feet. pt has tried compression socks in the past but states this causes increase pain. pt states he does have nerve loss in left foot and pins and needle sensation that causes pain. pt states he can see the difference in foot size when he is swollen and has increase in pain. pt wants to know what more he can do to mtg. LE edema. Pain left leg: Current Pain Intensity: 4 Pain Intensity Range: 3 Lymphedema (Circumferential Measure) Mid-foot: right 24cm left 24cm Ankle: right 26cm left 26cm Lower calf: right 30cm left 30cm Largest calf: right 45 left 42cm Below knee: right 41 cm left 38cm Goals Goal: Patient will demonstrate adequate knowledge of self-bandaging by the end of the first week.: Yes Goal: Patient will demonstrate adequate knowledge of self-massage by the end of the second week.: Yes Goal: Patient will demonstrate adequate knowledge of skin care and precautions by the end of the first week.: Yes Goal: Patient will demonstrate adequate knowledge of therapeutic exercises by discharge.: Yes Goal: Patient will select an appropriate compression garment and demonstrate adequate knowledge of correct donning technique, care and wearing schedule by discharge.: Yes Goal: Patient will voice understanding of need to replace compression garment every four to six months by discharge.: Yes Rehabilitation General Assessment: pt arrives with with concerns of left LE swelling. pt struggling to know what to do to mtg. his swelling. Pt would benefit from skilled OT services 3-6 visits to ed. pt in life long mtg. Pt and pts demo understanding and agree to POC. Today therapist ed. pt on use of compression socks 20-30mmHg, exercise and elevation to decrease swelling in left LE. pt would benefit from use of vaso pneumatic pump to assist in mtg. of edema. pt demo understanding and agree with POC. Rehabilitation Potential: Questionable Anticipated Interventions Anticipated Interventions: Education re Life-long lymphedema Management, Education re Skin Care and Precautions, Education re Self Massage Techniques, Education re Correct Donning Tech,Care&Wearing Sched Comp Garments and Caregiver Training Visit Plan Frequency: Every Other Week Duration: 2 Months General Plan: pt to initiate elevation- compression and exercise to mtg. LE edema. pt may benefit from use of home Vaso compression pump to support pts circulation and mtg. LE edema. TEXT: Thank you for the opportunity to evaluate your patient. For Medicare and Medicare HMO plans, please review the plan of care and approve it. It will need to be FAXED BACK to us at [phone] for Medicare purposes. Please let me know if there are questions or concerns regarding this plan of care. Physician Signature: Date:
--- NOTE | 2025-04-29 11:59 | HP.OT.NRP ---
Patient Information Patient Information: JASON CALDERON was seen in my office for initial evaluation on 02/20/25. The following Plan of Care was established for this patient: POC Established Initial Frequency: Every Other Week Initial Duration: 2 Months Anticipated Interventions Anticipated Interventions: Education re Life-long lymphedema Management, Education re Skin Care and Precautions, Education re Self Massage Techniques, Education re Correct Donning Tech,Care&Wearing Sched Comp Garments and Caregiver Training Last Seen Last Seen: This patient was last seen in our office 02/20/25. Pertinent comments regarding their Occupational therapy will appear below: no further apts have been scheduled and due to time lapse in services pt is d/c at this time. At this point I will be discontinuing this patient from occupational therapy. I would be happy to see this patient again in the future if found appropriate by the physician. Thank you! Stephanie Smyth, OTR/L, CHT
== END 2025-02-20 19:00 | disposition home or self-care (01) ==
LOC: OT 09:38
PROVIDERS: PCP Nurse Practitioner Family
DX: R60.0 Localized edema (principal); G57.02 Lesion of sciatic nerve, left lower limb
CPT/HCPCS: 97166

== ENCOUNTER → 2025-03-24 | Outpatient (CLI) | payer BC, SELFPAY ==
--- NOTE | 2025-03-24 12:07 | ST.MBS ---
Modified Barium Swallow Patient Information Study Date: 03/24/25 Study Time: 09:30 Direct Billable Minutes: 120 Total Minutes procedure & reportin Diagnosis: Dysphagia R13.10 Referring Physician: CORINA GARCIA Reason for Referral: Assess swallow function, assess risk for aspiration, and determine recommendations for any necessary dysphagia interventions. 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 The patient reported sudden onset of sensation of something lodged in his throat 2 months ago. Initially, the patient had no pain, but yesterday at a family member's birthday libertarian, he was eating and felt a pop followed by sudden onset of pain 6-7/10 every time he swallows. COAL PULVERIZING OPERATOR inspected oral cavity and throat and pt appeared to have enlarged tonsils bilaterally. Pt feels that he occasionally has a palpable lump on his neck on the R side. COAL PULVERIZING OPERATOR unable to locate a lump; however, pt does have significant adipose tissue impacting COAL PULVERIZING OPERATOR's ability to thoroughly palpate. Of note, pt was having intermittent hoarseness, but now hoarseness is persistent. He has not been seen by an ENT. Pt reported following w/ GI many years ago for management of severe reflux, which he reported was impacting the lining of his esophagus at that time. His primary care office ordered this MBSS. Current Diet Ordered: Regular textures / Thin liquids Dentition: Natural Teeth and Missing Teeth Mental Status: WNL Respiratory Status: Oxygenating on Room Air Penetration-Aspiration Scale Penetration-Aspiration Scale: OBJECTIVE ASSESSMENT OF SWALLOW FUNCTION (QUANTITATIVE ? PER TRIAL): PENETRATION / ASPIRATION SCALE (BLANCA): 1 = does not enter airway 2 = enters airway/above vocal folds/ejected 3 = enters airway/above vocal folds/not ejected 4 = enters airway/contacts vocal folds/ejected 5 = enters airway/contacts vocal folds/not ejected 6 = enters airway/below vocal folds/ejected 7 = enters airway/below vocal folds/not ejected despite effort 8 = enters airway/below vocal folds/no effort VIDEOFLOROSCOPIC SCALE SCORE (BLANCA): Grade I = aspiration of material that has penetrated into the laryngeal vestibule, intact cough reflex Grade II = aspiration < 10 % of the bolus, intact cough reflex Grade III = aspiration of < 10 % of the bolus, reduced cough reflex or aspiration of > 10 % of the bolus, intact cough reflex Grade IV = aspiration of > 10 % of the bolus, reduced cough reflex Penetration-Aspiration Scale Score Thin Liquid via teaspoon: Result: 1= does not enter airway Thin Liquid via teaspoon Trial 2: Result: 1= does not enter airway Thin Liquid via small single sip: cup: Result: 1= does not enter airway Thin Liquid via sequential sips: cup: Result: 1= does not enter airway Comment: Esophageal screen - View of esophagus was somewhat obscured due to pt's body habitus; however, liquids appeared to fully clear through the LES. [place] Thick Liquid via small single sip: cup: Result: 1= does not enter airway Pudding via teaspoon: Result: 1= does not enter airway Comment: Esophageal screen - Mild retention in the middle esophagus. /2 Cookie: Result: 1= does not enter airway Thin Liquid via single sip: straw: Result: 2= enter airway/above vocal folds/ejected Comment: Esophageal screen - Again, view of esophagus was somewhat obscured due to pt's body habitus; however, liquids appeared to fully clear through the LES. Thin Liquid via sequential sips:straw: Result: 2= enter airway/above vocal folds/ejected Oral Phase Labial Seal: No Labial Escape Tongue Control During Bolus Hold: Posterior escape of greater than half of bolus Bolus Preparation/Mastication: Timely and efficient chewing and mashing Bolus Transport/Lingual Motion: Delayed initiation of tongue motion Oral Residue: Residue collection on oral structures Pharyngeal Phase Initiation of Pharyngeal Swallow: Bolus head in pyriforms Soft Palate Elevation: Trace column of contrast/air between soft palate and pharyngeal wall Laryngeal Elevation: Comp. Superior move thyroid cart w/comp. apprx arytenoid cart-epig pet Anterior Hyoid Excursion: Partial anterior movement Epiglottic Movement: Complete inversion Laryngeal Vestibule Closure at Height of Swallow: Incomplete; narrow column of air/contrast in laryngeal vestibule (trace laryngeal penetration w/ complete ejection of sequential sips of liquids via straw) Pharyngeal Stripping Wave: Present - complete Pharyngoesophageal Segment Opening: Parital distension and partial duration; parital obstruction of flow (trace retention in the UES) Tongue Base Retraction: Narrow column of contrast between tongue base & post. pharyngeal wall Pharyngeal Residue: Collection of residue within or on pharyngeal structures Esophageal Phase Esophageal Clearance: Esophageal retention Diagnosis/Impression Diagnosis: Oropharyngeal swallow function grossly WNL MBS Impressions: Premature posterior loss of liquids to the pyriform sinuses prior to swallow onset w/ trace laryngeal penetration prior to swallow onset 1X w/ complete ejection from the laryngeal vestibule. No aspiration. Piecemeal deglutition of cookie, but pt fully cleared oral residues w/ independent use of additional swallow as needed. Mild pharyngeal reside of pudding, which fully cleared w/ independent use of a second swallow; otherwise, complete pharyngeal clearance of liquid and cookie trials. Recommendations Diet: Regular Textures and Thin Liquids Compensatory Strategies: Small Bites, Small Sips, Slow Rate, Multiple Swallows, Alternate bites/solids and sips/liquids, Sitting upright and Remain sitting upright for 30 minutes after PO intake Recommend Repeat Modified Barium Swallow: No Need for Skilled Speech Therapy Services: No Comment: No immediate ST consult recommended; however, pending results of ENT evaluation, voice therapy may be recommended. Recommended Referrals: GI Consult and ENT Consult (COAL PULVERIZING OPERATOR strongly recommends ENT consult as soon as able given pt sensation of lump in his throat, odynophagia, persistent hoarseness w/ hx of severe GERD and tobacco abuse/smoking. Pt reports occasionally having a palpable lump on R side of neck. Would also consider CT of the neck.) Education Completed: 1. Described result of evaluation. and 2. Pt understands evaluation & agrees with goals and treatment plan. Comment: COAL PULVERIZING OPERATOR called the patient's primary care office to inform them of COAL PULVERIZING OPERATOR recommendation for an ENT evaluation as soon as able. Status Active ST Patient: Active Contact Information [facility] Speech Therapy:: Kathi Cedeno M.A. [facility]-COAL PULVERIZING OPERATOR? Speech-Language Pathologist?? [facility] [address] [place] [address]? [email or web address]?? [phone]
== END | disposition home or self-care (01) ==
LOC: RAD 09:05
PROVIDERS: PCP Nurse Practitioner Family; Referring Provider Nurse Practitioner Family; Visit Provider Nurse Practitioner Family
DX: R13.10 Dysphagia, unspecified (principal)
CPT/HCPCS: 74230; 92611